=== PATIENT | male | born 1955 | race Caucasian/White ===

== ENCOUNTER 2017-08-21 19:58 | Inpatient (IN) | payer BC ==
[~2017-08-21] VITALS: Ht 188 cm; Wt 95.6 kg
[2017-08-21] VITALS (35 sets, daily range): BP systolic 120; BP diastolic 93; PULSE 100; TEMP 98.3; O2SAT 89–94
[2017-08-21] MEDS ORDERED: TOPROL XL100 MG PO (20:23)
[2017-08-21] MEDS ORDERED: LASIX 20MG TABL20 MG PO (20:23)
[2017-08-21] MEDS ORDERED: COUMADIN 5MG5 MG/TAB PO (20:23)
[2017-08-21] MEDS ORDERED: CELEBREX 200MG200 MG PO (20:24)
[2017-08-21] MEDS ORDERED: FLOMAX 0.40.4 MG/CAP PO (20:24)
[2017-08-21 20:41] LABS: BASO % 0.4 % (0.0-2.0); EOS # 0.2 (0.0-0.7); EOS % 1.9 % (0-4.0); GRAN # 5.8 (1.4-6.5); GRAN % 72.3 % (42.2-75.2); HEMATOCRIT 47.5 % (42.0-52.0); HEMOGLOBIN 15.9 g/dl (13.5-18.0); LYMPH # 1.3 (1.2-3.4); LYMPH % 16.6 % (20.0-51.0); MEAN CELL VOLUME 98 fl (80.0-100.0); MEAN CORPUSCULAR HEMOGLOBIN 33 pg (27.0-31.0); MEAN CORPUSCULAR HGB CONC 34 g/dl (33.0-37.0); MEAN PLATELET VOLUME 9.3 fl (7.4-10.4); MONO # 0.7 (0.1-0.6); MONO % 8.7 % (1.7-9.3); PLATELET COUNT 182 K/mm3 (130-400); RED BLOOD COUNT 4.83 M/mm3 (4.20-5.60); WHITE BLOOD COUNT 8.1 K/mm3 (4.8-10.8)
[2017-08-21 21:15] LABS: ADJUSTED CALCIUM 8.9 mg/dL (8.4-10.2); ALANINE AMINOTRANSFERASE 31 U/L (21-72); ALBUMIN 4.1 gm/dL (3.5-5.0); ALKALINE PHOSPHATASE 92 U/L (50-136); ANION GAP 9 mmol/L (7-16); BILIRUBIN,TOTAL 0.6 mg/dL (0.0-1.0); BLOOD UREA NITROGEN 20 mg/dL (9-20); CARBON DIOXIDE 27 mmol/L (22-30); CHLORIDE 106 mmol/L (98-107); CREATININE, serum 1.06 mg/dL (0.66-1.25); GLUCOSE 115 mg/dL (74-106); LIPASE 81 U/L (23-300); POTASSIUM 3.7 mmol/L (3.4-5.0); SODIUM 141 mmol/L (137-145); TOTAL PROTEIN 7.2 gm/dL (6.4-8.2)
[2017-08-21 21:30] LABS: ALCOHOL(ethanol),MEDICAL < 10 mg/dL; TROPONIN-I < 0.012 ng/mL (0.000-0.034)
[2017-08-21 22:01] LABS: INR 2.2 (0.8-3.0); PROTHROMBIN TIME 25.7 SECONDS (9.7-12.8)
[2017-08-21 22:33] LABS: ALLEN TEST YES; ALLENS TEST RESULT PASS; ARTERIAL BLD GAS O2 SATURATION 92.1 % (92-100); ARTERIAL BLD GAS TCO2 CT 27.6; ARTERIAL BLOOD GAS BASE EXCESS 0.2 (-2-2); ARTERIAL BLOOD GAS HCO3 26.2 meq/L (22-26); ARTERIAL BLOOD GAS PO2 60.7 mmHg (80-100); ARTERIAL BLOOD GAS pH 7.36 (7.35-7.45); ATS? YES; OXYHEMOGLOBIN 89.3 %
[2017-08-22] VITALS (1121 sets, daily range): BP systolic 92–114; BP diastolic 51–74; PULSE 66–91; TEMP 97.5–98.3; O2SAT 84–100
[2017-08-22 01:51] LABS: ARTERIAL BLD GAS O2 SATURATION 93.8 % (92-100); ARTERIAL BLD GAS TCO2 CT 30.2; ARTERIAL BLOOD GAS BASE EXCESS 2.3 (-2-2); ARTERIAL BLOOD GAS HCO3 28.6 meq/L (22-26); ARTERIAL BLOOD GAS pH 7.37 (7.35-7.45); OXYHEMOGLOBIN 91.7 %
[2017-08-22 01:52] LABS: ALLEN TEST YES; ALLENS TEST RESULT PASS; ATS? YES
[2017-08-22 06:00] LABS: ARTERIAL BLD GAS TCO2 CT 26.3; ARTERIAL BLOOD GAS BASE EXCESS 0.1 (-2-2); OXYHEMOGLOBIN 82.9 %
[2017-08-22 06:01] LABS: ALLEN TEST YES; ALLENS TEST RESULT PASS; ARTERIAL BLOOD GAS PO2 48.9 mmHg (80-100); ATS? YES
[2017-08-22 06:14] LABS: BASO % 0.4 % (0.0-2.0); EOS # 0.1 (0.0-0.7); GRAN # 4.4 (1.4-6.5); GRAN % 64.8 % (42.2-75.2); HEMATOCRIT 43.4 % (42.0-52.0); HEMOGLOBIN 14.3 g/dl (13.5-18.0); LYMPH # 1.6 (1.2-3.4); LYMPH % 23.7 % (20.0-51.0); MEAN CELL VOLUME 100 fl (80.0-100.0); MEAN CORPUSCULAR HEMOGLOBIN 33 pg (27.0-31.0); MEAN CORPUSCULAR HGB CONC 33 g/dl (33.0-37.0); MEAN PLATELET VOLUME 9.5 fl (7.4-10.4); MONO # 0.7 (0.1-0.6); MONO % 9.8 % (1.7-9.3); PLATELET COUNT 189 K/mm3 (130-400); RED BLOOD COUNT 4.33 M/mm3 (4.20-5.60); WHITE BLOOD COUNT 6.7 K/mm3 (4.8-10.8)
[2017-08-22 06:23] LABS: INR 2.2 (0.8-3.0); PROTHROMBIN TIME 25.4 SECONDS (9.7-12.8)
[2017-08-22 06:27] LABS: ADJUSTED CALCIUM 8.7 mg/dL (8.4-10.2); ALBUMIN 3.6 gm/dL (3.5-5.0); BILIRUBIN,TOTAL 0.7 mg/dL (0.0-1.0); CALCIUM 8.4 mg/dL (8.4-10.2); CREATININE, serum 1.03 mg/dL (0.66-1.25); POTASSIUM 3.7 mmol/L (3.4-5.0); TOTAL PROTEIN 6.4 gm/dL (6.4-8.2)
[2017-08-22 06:28] LABS: AMMONIA 11 umol/L (11-35)
[2017-08-22 06:41] LABS: TROPONIN-I < 0.012 ng/mL (0.000-0.034)
[2017-08-22 07:02] LABS: TSH w REFLEX 0.587 uIU/mL (0.465-4.680)
[2017-08-22 14:16] LABS: ARTERIAL BLD GAS O2 SATURATION 88.9 % (92-100); ARTERIAL BLD GAS TCO2 CT 30.2; ARTERIAL BLOOD GAS BASE EXCESS 3.9 (-2-2); ARTERIAL BLOOD GAS HCO3 28.9 meq/L (22-26); ARTERIAL BLOOD GAS PHT 7.43 C (7.35-7.45); ARTERIAL BLOOD GAS PO2 52.1 mmHg (80-100); ARTERIAL BLOOD GAS PO2T 52.1 (80-100); ARTERIAL BLOOD GAS pH 7.43 (7.35-7.45); OXYHEMOGLOBIN 87.6 %
[2017-08-22 14:18] LABS: ALLEN TEST YES; ALLENS TEST RESULT PASS; ATS? YES
[2017-08-22 19:30] LABS: COLLECTION METHOD CLEAN CATCH
[2017-08-22 19:52] LABS: AMPHETAMINE URINE POSITIVE; BARBITURATES URINE NEGATIVE; BENZODIAZEPINES URINE NEGATIVE; BUPRENORPHINE URINE NEGATIVE; METHADONE URINE NEGATIVE; OPIATES URINE NEGATIVE; OXYCODONE URINE NEGATIVE; PHENCYCLIDINE URINE NEGATIVE; PROPOXYPHENE URINE NEGATIVE; THC CANNABINOIDS URINE POSITIVE; TRICYCLIC ANTIDEPRESS URINE NEGATIVE
[2017-08-22 21:34] LABS: MUCOUS Present /lpf; PH 6 (5-8); SQUAMOUS EPITHELIAL None Seen /hpf; URINE APPEARANCE Clear; URINE BACTERIA None Seen /hpf; URINE BILIRUBIN Negative (NEGATIVE); URINE BLOOD Negative (NEGATIVE); URINE COLOR Yellow; URINE GLUCOSE Negative (NEGATIVE); URINE KETONE Negative (NEGATIVE); URINE LEUKOCYTE ESTERASE Negative (NEGATIVE); URINE PROTEIN(semi-quant) Negative (NEGATIVE); URINE RBC 0-2 /hpf; URINE UROBILINOGEN Negative (NEGATIVE)
[2017-08-23] VITALS (790 sets, daily range): BP systolic 95–125; BP diastolic 56–79; PULSE 73–92; TEMP 97.5–98.9; O2SAT 81–99
[2017-08-23 05:25] LABS: ARTERIAL BLD GAS O2 SATURATION 92.6 % (92-100); ARTERIAL BLD GAS TCO2 CT 25.7; ARTERIAL BLOOD GAS BASE EXCESS 0.1 (-2-2); ARTERIAL BLOOD GAS HCO3 24.5 meq/L (22-26); ARTERIAL BLOOD GAS PO2 62.4 mmHg (80-100); ARTERIAL BLOOD GAS pH 7.42 (7.35-7.45); OXYHEMOGLOBIN 91.8 %
[2017-08-23 05:26] LABS: ALLEN TEST YES; ALLENS TEST RESULT PASS; ATS? YES
[2017-08-23 05:37] LABS: HEMATOCRIT 43.6 % (42.0-52.0); HEMOGLOBIN 14.5 g/dl (13.5-18.0); MEAN CELL VOLUME 100 fl (80.0-100.0); MEAN CORPUSCULAR HEMOGLOBIN 33 pg (27.0-31.0); MEAN CORPUSCULAR HGB CONC 33 g/dl (33.0-37.0); MEAN PLATELET VOLUME 9.5 fl (7.4-10.4); PLATELET COUNT 190 K/mm3 (130-400); RED BLOOD COUNT 4.38 M/mm3 (4.20-5.60); WHITE BLOOD COUNT 8.1 K/mm3 (4.8-10.8)
[2017-08-23 05:48] LABS: ADD PATHOLOGY DIFF REVIEW NO
[2017-08-23 05:52] LABS: CALCIUM 8.8 mg/dL (8.4-10.2); CREATININE, serum 1.05 mg/dL (0.66-1.25); POTASSIUM 4.2 mmol/L (3.4-5.0)
[2017-08-23 06:07] LABS: BAND 11 % (0-10); LYMPHOCYTE 5 % (20.0-51.0); NEUTROPHILS 80 % (42.0-75.2); TOTAL CELLS COUNTED 100
[2017-08-23 06:08] LABS: PLATELET ESTIMATE NORMAL (NORMAL)
[2017-08-24] VITALS (396 sets, daily range): BP systolic 100–119; BP diastolic 65–84; PULSE 63–93; TEMP 97.3–98.9; O2SAT 80–100
[2017-08-24 05:37] LABS: HEMATOCRIT 43.2 % (42.0-52.0); HEMOGLOBIN 14.3 g/dl (13.5-18.0); MEAN CELL VOLUME 101 fl (80.0-100.0); MEAN CORPUSCULAR HEMOGLOBIN 34 pg (27.0-31.0); MEAN CORPUSCULAR HGB CONC 33 g/dl (33.0-37.0); PLATELET COUNT 193 K/mm3 (130-400); RED BLOOD COUNT 4.27 M/mm3 (4.20-5.60); WHITE BLOOD COUNT 12.4 K/mm3 (4.8-10.8)
[2017-08-24 05:47] LABS: CALCIUM 8.8 mg/dL (8.4-10.2); CREATININE, serum 1.15 mg/dL (0.66-1.25)
[2017-08-24 11:23] LABS: BASO % 0.1 % (0.0-2.0); GRAN # 8.4 (1.4-6.5); GRAN % 83.1 % (42.2-75.2); HEMATOCRIT 43.8 % (42.0-52.0); HEMOGLOBIN 14.7 g/dl (13.5-18.0); LYMPH # 1.1 (1.2-3.4); LYMPH % 11.3 % (20.0-51.0); MEAN CELL VOLUME 100 fl (80.0-100.0); MEAN CORPUSCULAR HEMOGLOBIN 33 pg (27.0-31.0); MEAN CORPUSCULAR HGB CONC 34 g/dl (33.0-37.0); MEAN PLATELET VOLUME 9.6 fl (7.4-10.4); MONO # 0.5 (0.1-0.6); MONO % 5.2 % (1.7-9.3); PLATELET COUNT 184 K/mm3 (130-400); WHITE BLOOD COUNT 10.1 K/mm3 (4.8-10.8)
[2017-08-24 11:27] LABS: INR 1.6 (0.8-3.0); PROTHROMBIN TIME 17.7 SECONDS (9.7-12.8)
[2017-08-24 11:30] LABS: PARTIAL THROMBOPLASTIN TIME 27.9 SECONDS (26.0-37.0)
[2017-08-24 11:33] LABS: ADJUSTED CALCIUM 8.9 mg/dL (8.4-10.2); ALBUMIN 3.8 gm/dL (3.5-5.0); BILIRUBIN,TOTAL 0.8 mg/dL (0.0-1.0); CALCIUM 8.7 mg/dL (8.4-10.2); CREATININE, serum 1.12 mg/dL (0.66-1.25); MAGNESIUM 2.1 mg/dL (1.6-2.3); POTASSIUM 3.6 mmol/L (3.4-5.0); TOTAL PROTEIN 6.7 gm/dL (6.4-8.2)
[2017-08-24] MEDS ORDERED: IPRATROPIUM BROM3 M1 IH (14:14)
[2017-08-24] MEDS ORDERED: CLEOCIN HC150 MG/CAP PO (14:14)
[2017-08-24] MEDS ORDERED: MEDROL 4MG DOSPA4 MG PO (14:16)
[2017-08-24] MEDS ORDERED: OMNICEF 300MG300 MG PO (14:17)
== END 2017-08-24 15:44 | disposition home or self-care (01) | DRG 177 ==
LOC: COL.ER 19:58 → ICU 20:49
PROVIDERS: Emergency Medicine; Family Medicine; Internal Medicine; Nurse Practitioner
DX: J69.0 Pneumonitis due to inhalation of food and vomit (principal); J96.01 Acute respiratory failure with hypoxia; J96.02 Acute respiratory failure with hypercapnia; G93.40 Encephalopathy, unspecified; J44.9 Chronic obstructive pulmonary disease, unspecified; I10 Essential (primary) hypertension; F17.210 Nicotine dependence, cigarettes, uncomplicated; F15.10 Other stimulant abuse, uncomplicated; F12.10 Cannabis abuse, uncomplicated; Z86.718 Personal history of other venous thrombosis and embolism; Z79.2 Long term (current) use of antibiotics; Z23 Encounter for immunization
CPT/HCPCS: 99223-AI; 99233-AI; 99239; J0456; J0696; J2310; J2405; J2550; J2920; J7050; J7512; Q9967

== ENCOUNTER 2020-02-28 11:48 | Emergency (ER) | payer MEDICARE, OTHER ==
[~2020-02-28] VITALS: Ht 188 cm; Wt 118.2 kg
[~2020-02-28 11:48] MED LIST: CELEBREX 200MG200 MG PO; CLEOCIN HC150 MG/CAP PO; COUMADIN 5MG5 MG/TAB PO; FLOMAX 0.40.4 MG/CAP PO; IPRATROPIUM BROM3 M1 IH; LASIX 20MG TABL20 MG PO; MEDROL 4MG DOSPA4 MG PO; OMNICEF 300MG300 MG PO; TOPROL XL100 MG PO
[2020-02-28 11:52] VITALS: TEMP 98.6
[2020-02-28] MEDS ORDERED: PLAVIX 75MG TAB75 MG PO (12:15)
[2020-02-28] MEDS ORDERED: ASPIRIN 81M81 MG/TA2 PO (12:15)
[2020-02-28] MEDS ORDERED: WELLBUTRIN SR150 M1 PO (12:15)
[2020-02-28 12:54] LABS: BASO % 0.5 % (0.0-2.0); EOS # 0.3 (0.0-0.7); GRAN # 3.5 (1.4-6.5); HEMATOCRIT 43.7 % (42.0-52.0); HEMOGLOBIN 14.4 g/dl (13.5-18.0); LYMPH # 1.5 (1.2-3.4); LYMPH % 25.8 % (20.0-51.0); MEAN CELL VOLUME 98 fl (80.0-100.0); MEAN CORPUSCULAR HEMOGLOBIN 32 pg (27.0-31.0); MEAN CORPUSCULAR HGB CONC 33 g/dl (33.0-37.0); MEAN PLATELET VOLUME 9.3 fl (7.4-10.4); MONO # 0.6 (0.1-0.6); MONO % 9.5 % (1.7-9.3); PLATELET COUNT 216 K/mm3 (130-400); RED BLOOD COUNT 4.44 M/mm3 (4.20-5.60); REDCELL DISTRIBUTION WIDTH-CV 14.8 % (11.5-14.5)
[2020-02-28 13:11] LABS: ALBUMIN 3.5 gm/dL (3.5-5.0); BILIRUBIN,TOTAL 0.5 mg/dL (0.0-1.0); CALCIUM 8.4 mg/dL (8.4-10.2); CREATININE, serum 1.29 (0.66-1.25); POTASSIUM 4.3 mmol/L (3.4-5.0); TOTAL PROTEIN 6.7 gm/dL (6.4-8.2)
[2020-02-28 13:47] LABS: PROTHROMBIN TIME 22.9 SECONDS (9.7-12.8)
[2020-02-28 13:50] LABS: PARTIAL THROMBOPLASTIN TIME 35.9 SECONDS (26.0-37.0)
[2020-02-28 15:28] VITALS: BP 109/88; PULSE 78
== END 2020-02-28 15:25 | disposition home or self-care (01) ==
LOC: COL.ER 11:48
PROVIDERS: Emergency Medicine
DX: M79.662 Pain in left lower leg (principal); M79.661 Pain in right lower leg; Z86.718 Personal history of other venous thrombosis and embolism; Z79.01 Long term (current) use of anticoagulants; Z79.82 Long term (current) use of aspirin; Z79.02 Long term (current) use of antithrombotics/antiplatelets

== ENCOUNTER 2024-07-31 14:55 | Emergency (ER) | payer MEDICARE, MEDICAID ==
[~2024-07-31] VITALS: Ht 188 cm; Wt 84.1 kg
[~2024-07-31 14:55] MED LIST changes: +ASPIRIN 81M81 MG/TA2 PO; +PLAVIX 75MG TAB75 MG PO; +WELLBUTRIN SR150 M1 PO
[2024-07-31 15:16] VITALS: TEMP 97.7
[2024-07-31 16:39] LABS: BASO % 0.3 % (0.0-2.0); EOS # 0.2 K/mm3 (0.0-0.7); EOS % 3.4 % (0.0-4.0); GRAN # 3.9 K/mm3 (1.4-6.5); GRAN % 64.2 % (42.2-75.2); HEMATOCRIT 47.3 % (42.0-52.0); HEMOGLOBIN 16.2 g/dl (13.5-18.0); LYMPH # 1.2 K/mm3 (1.2-3.4); LYMPH % 19.4 % (20.0-51.0); MEAN CELL VOLUME 97 fl (80.0-100.0); MEAN CORPUSCULAR HEMOGLOBIN 33 pg (27-31); MEAN CORPUSCULAR HGB CONC 34 g/dl (33.0-37.0); MEAN PLATELET VOLUME 8.7 fl (7.4-10.4); MONO # 0.8 K/mm3 (0.1-0.6); MONO % 12.5 % (1.7-9.3); PLATELET COUNT 167 K/mm3 (130-400); REDCELL DISTRIBUTION WIDTH-CV 14.8 % (11.5-14.5)
[2024-07-31 16:45] LABS: PROTHROMBIN TIME 31.2 SECONDS (9.7-12.8)
[2024-07-31 16:59] LABS: ALBUMIN 3.4 g/dL (3.4-4.8); BILIRUBIN,TOTAL 0.6 mg/dL (0.2-1.2); CALCIUM 9.3 mg/dL (8.4-10.2); CREATININE, serum 1.39 mg/dL (0.72-1.25); POTASSIUM 4.7 mEq/L (3.5-4.5); TOTAL PROTEIN 7.1 g/dl (6.2-8.1)
[2024-07-31 17:19] VITALS: BP 145/114; PULSE 81
== END 2024-07-31 17:22 | disposition home or self-care (01) ==
LOC: COL.ER 14:55
PROVIDERS: Family Medicine
DX: S06.0X0A Concussion without loss of consciousness, initial encounter (principal); S00.93XA Contusion of unspecified part of head, initial encounter; W01.10XA Fall on same level from slipping, tripping and stumbling with subsequent striking against unspecified object, initial encounter